=== PATIENT | male | born 1995 | race Two or more races ===

== ENCOUNTER 2017-01-24 20:27 | Emergency (ER) | payer SELFPAY ==
[2017-01-24 20:44] VITALS: BP 142/68; PULSE 94; TEMP 97.8; BMI 19.5
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
[2017-01-24] MEDS ORDERED: IBUPROFEN 600 MG TABLET (FP) PO ONE ×2 (21:58→22:07)
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
== END 2017-01-24 22:58 | disposition home or self-care (01) ==
LOC: JER 20:27
DX: S19.9XXA Unspecified injury of neck, initial encounter (principal); S09.90XA Unspecified injury of head, initial encounter; W22.8XXA Striking against or struck by other objects, initial encounter; Y93.89 Activity, other specified; Y92.9 Unspecified place or not applicable
CPT/HCPCS: 70450-TC; 72125-TC; 73030-TC-LT; 73110-TC-LT; 73130-TC-LT; 99281-25

== ENCOUNTER 2020-09-13 07:50 | Emergency (ER) | payer OTHER ==
[2020-09-13 07:59] VITALS: BP 114/72; PULSE 68; TEMP 98.1; BMI 20.3
[2020-09-13] MEDS ORDERED: KETOROLAC TROMETHAMINE 30 MG/1 ML VIAL IM ONE (08:19)
[2020-09-13] MEDS ORDERED: KETOROLAC TROMETHAMINE 30 MG/1 ML VIAL ONE (08:22)
== END 2020-09-13 09:09 | disposition home or self-care (01) ==
LOC: JER 07:50
PROC: 3E023GC Introduction of Other Therapeutic Substance into Muscle, Percutaneous Approach (ICD-10-PCS; principal; 2020-09-13)
DX: M25.512 Pain in left shoulder (principal)
CPT/HCPCS: 73030-TC-LT-FY; 99284-25

== ENCOUNTER 2023-08-07 17:28 | Emergency (ER) | payer OTHER ==
[2023-08-07 17:45] VITALS: BP 105/73; PULSE 85; RESP 18; TEMP 98.5; BMI 19.0
[2023-08-07] MEDS ORDERED: METOCLOPRAMIDE HCL INJECTION 10 MG/2 ML VIAL ONE (18:45)
[2023-08-07] MEDS ORDERED: ACETAMINOPHEN INJECTION 100 ML IVPB ONE (18:46)
[2023-08-07 18:47] LABS: BASO % 0.1 % (0-2.0); EOS % 0.1 % (0-4.5); HEMATOCRIT 42.5 % (35.4-49); HEMOGLOBIN 13.9 GM/dL (11.7-16.9); LYMPH % 9.7 % (8-40); MCH 27.3 pg (25.7-33.7); MCHC 32.7 g/dl (32.0-35.9); MEAN CELL VOLUME 83.6 fl (80-96); MEAN PLT VOLUME 7.4 fl (7.5-11.1); NEUT % 87.1 % (42.8-82.8); PLATELET COUNT 344 10^3/uL (134-434); RBC 5.08 M/mm3 (4.00-5.60); RDW 12.5 % (11.9-15.9); WHITE BLOOD COUNT 13.8 K/mm3 (4.0-10.0)
[2023-08-07 18:54] LABS: INR 1.11 (0.83-1.09); PROTHROMBIN TIME (PATIENT) 12.9 SEC (9.7-13.0)
[2023-08-07] MEDS: SODIUM CHLORIDE 1,000 ML IV ONE (18:54)
[2023-08-07] MEDS: ACETAMINOPHEN 1000 MG/100 ML BAG IVPB ONE (18:54)
[2023-08-07 18:56] LABS: ACTIVATED PTT 29.3 SECONDS (25.2-36.5)
[2023-08-07] MEDS: METOCLOPRAMIDE HCL INJECTION 10 MG/2 ML VIAL IVPUSH ONE (19:16)
[2023-08-07 19:38] LABS: POTASSIUM 4.2 mmol/L (3.5-5.1)
[2023-08-07 19:40] LABS: CALCIUM 10.2 mg/dL (8.5-10.1)
[2023-08-07 19:41] LABS: ALBUMIN 4.2 g/dl (3.4-5.0); BLOOD UREA NITROGEN 15.9 mg/dL (7-18); MAGNESIUM 2.3 mg/dL (1.8-2.4)
[2023-08-07 19:44] LABS: CREATININE 0.8 mg/dL (0.55-1.3)
[2023-08-07 19:45] LABS: BILIRUBIN,TOTAL 0.6 mg/dL (0.2-1); TOT PROT 7.4 g/dl (6.4-8.2)
== END 2023-08-07 20:00 | disposition left against medical advice (07) ==
LOC: JER 17:28
PROC: 3E033NZ Introduction of Analgesics, Hypnotics, Sedatives into Peripheral Vein, Percutaneous Approach (ICD-10-PCS; principal; 2023-08-07)
PROC: 3E033GC Introduction of Other Therapeutic Substance into Peripheral Vein, Percutaneous Approach (ICD-10-PCS; 2023-08-07)
PROC: 3E0337Z Introduction of Electrolytic and Water Balance Substance into Peripheral Vein, Percutaneous Approach (ICD-10-PCS; 2023-08-07)
DX: R11.2 Nausea with vomiting, unspecified (principal); R51.9 Headache, unspecified; R42 Dizziness and giddiness; S09.90XA Unspecified injury of head, initial encounter; W10.1XXA Fall (on)(from) sidewalk curb, initial encounter
CPT/HCPCS: 36415; 80053; 83735; 85025; 85610; 85730; 86850; 86900; 86901; 99284-25; J0131

== ENCOUNTER 2023-08-16 11:16 | Emergency (ER) | payer OTHER ==
[2023-08-16 11:32] VITALS: BP 100/60; PULSE 97; RESP 18; TEMP 98.8; BMI 19.8
[2023-08-16] MEDS ORDERED: METOCLOPRAMIDE HCL 10 MG TABLET (FP) PO ONE (11:56)
[2023-08-16] MEDS ORDERED: ACETAMINOPHEN 325 MG TABLET (FP) ONE (11:56)
[2023-08-16] MEDS ORDERED: ALPRAZolam 0.25 MG TABLET ONE (11:58)
[2023-08-16] MEDS: ALPRAZolam 0.25 MG TABLET PO ONE (12:00)
[2023-08-16] MEDS: ACETAMINOPHEN 325 MG TABLET (FP) PO ONE (12:00)
[2023-08-16] MEDS: METOCLOPRAMIDE HCL 10 MG TABLET (FP) PO ONE (12:01)
== END 2023-08-16 12:49 | disposition home or self-care (01) ==
LOC: JERFT 11:16
DX: Z48.02 Encounter for removal of sutures (principal)
CPT/HCPCS: 99283-25

== ENCOUNTER 2023-09-15 13:27 | Emergency (ER) | payer OTHER ==
[2023-09-15 13:34] VITALS: BP 132/88; PULSE 103; RESP 18; TEMP 98; BMI 19.0
[2023-09-15] MEDS ORDERED: IBUPROFEN 600 MG TABLET (FP) PO ONE (14:19)
[2023-09-15] MEDS ORDERED: ACETAMINOPHEN 500 MG TABLET (FP) ONE (14:19)
[2023-09-15] MEDS: ACETAMINOPHEN 500 MG TABLET (FP) PO ONE (14:20)
[2023-09-15] MEDS: IBUPROFEN 600 MG TABLET (FP) PO ONE (14:20)
[2023-09-15] MEDS ORDERED: oxyCODONE HCL 5 MG TABLET ONE (15:49)
[2023-09-15] MEDS: oxyCODONE HCL 5 MG TABLET PO ONE (15:50)
== END 2023-09-15 16:37 | disposition home or self-care (01) ==
LOC: JERFT 13:27
DX: S69.92XA Unspecified injury of left wrist, hand and finger(s), initial encounter (principal); M25.532 Pain in left wrist; W10.9XXA Fall (on) (from) unspecified stairs and steps, initial encounter
CPT/HCPCS: 73110-TC-LT-FY; 73130-TC-LT-FY; 99283-25

== ENCOUNTER 2024-01-13 15:16 | Emergency (ER) | payer OTHER ==
[2024-01-13 15:21] VITALS: BP 120/68; PULSE 69; RESP 18; TEMP 97.4; BMI 19.0
[2024-01-13] MEDS ORDERED: METOCLOPRAMIDE HCL INJECTION 10 MG/2 ML VIAL ONE (17:17)
[2024-01-13] MEDS ORDERED: ACETAMINOPHEN INJECTION 100 ML IVPB ONE (17:17)
[2024-01-13] MEDS: LACTATED RINGERS SOLUTION 1000 ML INFUS.BAG IV ONE (17:38)
[2024-01-13] MEDS: ACETAMINOPHEN 1000 MG/100 ML BAG IVPB ONE (17:39)
[2024-01-13] MEDS: METOCLOPRAMIDE HCL INJECTION 10 MG/2 ML VIAL IVPB ONE (17:40)
[2024-01-13 18:34] LABS: POTASSIUM 3.9 mmol/L (3.5-5.1)
[2024-01-13 18:36] LABS: ALBUMIN 3.9 g/dl (3.4-5.0); BLOOD UREA NITROGEN 11.2 mg/dL (7-18); CALCIUM 9.3 mg/dL (8.5-10.1)
[2024-01-13 18:37] LABS: BASO % 0.1 % (0-2.0); EOS % 0.1 % (0-4.5); HEMATOCRIT 41.1 % (35.4-49); HEMOGLOBIN 13.7 GM/dL (11.7-16.9); LYMPH % 7.5 % (8-40); MCH 27.1 pg (25.7-33.7); MCHC 33.3 g/dl (32.0-35.9); MEAN CELL VOLUME 81.4 fl (80-96); MEAN PLT VOLUME 7.8 fl (7.5-11.1); MONO % 3.9 % (3.8-10.2); NEUT % 88.4 % (42.8-82.8); PLATELET COUNT 377 10^3/uL (134-434); RBC 5.06 M/mm3 (4.00-5.60); RDW 12.5 % (11.9-15.9); WHITE BLOOD COUNT 15.7 K/mm3 (4.0-10.0)
[2024-01-13 18:39] LABS: CREATININE 0.6 mg/dL (0.55-1.3)
[2024-01-13 18:41] LABS: BILIRUBIN,TOTAL 0.3 mg/dL (0.2-1); TOT PROT 7.2 g/dl (6.4-8.2)
== END 2024-01-13 18:52 | disposition home or self-care (01) ==
LOC: JER 15:16
PROC: 3E033NZ Introduction of Analgesics, Hypnotics, Sedatives into Peripheral Vein, Percutaneous Approach (ICD-10-PCS; principal; 2024-01-13)
PROC: 3E033GC Introduction of Other Therapeutic Substance into Peripheral Vein, Percutaneous Approach (ICD-10-PCS; 2024-01-13)
DX: R51.9 Headache, unspecified (principal); Z20.822 Contact with and (suspected) exposure to COVID-19
CPT/HCPCS: 0241U-QW; 36415; 80053; 85025; 99284-25; J0131